=== PATIENT | female | born 1965 | race Caucasian/White ===

== ENCOUNTER 2020-12-30 17:43 | Observation (INO) ==
[2020-12-30] MEDS ORDERED: ONDANSETRON HCL/PF 2 MG/ML VIAL IV ONE (18:11)
[2020-12-30] MEDS ORDERED: PANTOPRAZOLE SODIUM 40 MG/100 ML PIGGYBACK IV ONE (18:16)
[2020-12-30] MEDS ORDERED: MORPHINE SULFATE 2 MG/ML DISP.SYRIN IV ONE (18:19)
[2020-12-30] MEDS ORDERED: LORazepam 2 MG/ML DISP.SYRIN IV ONE (18:20)
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
[2020-12-30 18:51] LABS: Hematocrit 44.8 % (37.0-47.0); Hemoglobin 14.7 gm/dL (12.5-16.0); Mean Cell Volume 92.2 fl (78-100); Mean Corpuscular Hemoglobin 30.2 pg (27-31); Mean Corpuscular Hgb Conc 32.8 g/dl (32-36); Mean Platelet Volume 10.3 fl (8-12.5); Neutrophil # 5.5 K/mm3 (1.3-6.0); Neutrophil % 52.7 % (42-75.0); Platelet Count 490 K/mm3 (150-450); Red Blood Count 4.86 M/mm3 (4.2-5.4); Red Cell Distribution Width 11.9 % (11.5-14.0); White Blood Count 10.5 K/mm3 (4.0-10.5)
[2020-12-30 19:04] LABS: Urine Bilirubin Negative (NEGATIVE); Urine Blood Negative /ul (NEGATIVE); Urine Ketone Negative (NEGATIVE); Urine Nitrite Negative (NEGATIVE); Urine Protein Negative (NEGATIVE); Urine Specific Gravity >=1.030 SP.GR. (1.005-1.010); Urine Urobilinogen Normal (NORMAL)
[2020-12-30] MEDS ORDERED: MAG HYDROX/ALUMINUM HYD/SIMETH 30 ML UDC PO ONE (19:07)
[2020-12-30] MEDS ORDERED: LIDOCAINE HCL 15 ML UDC MM ONE (19:07)
[2020-12-30] MEDS ORDERED: SUCRALFATE 1 G/10 ML UDC PO ONE (19:07)
[2020-12-30 19:11] LABS: ALT 20 U/L (19-67); AST 14 U/L (0-48); Albumin * 3.9 gm/dl (3.4-5.0); Alkaline Phosphatase * 139 U/L (50-170); Amylase * 19 U/L (25-115); Anion Gap 14.1 mmol/L (6.8-13.8); BUN/Creatinine Ratio 15.5 (9.0-21.6); Bilirubin, Total 0.3 mg/dL (0.0-1.1); Blood Urea Nitrogen 11 mg/dL (3-23); Ca. Corrected For Albumin 8.9 mg/dL (8.4-10.2); Calcium * 9.1 mg/dL (7.9-10.9); Carbon Dioxide 24.3 mmol/L (24-32.6); Chloride 104 mmol/L (97-106); Glucose * 47 mg/dL (70-110); Lipase 29 U/L (73-393); Potassium 3.4 mmol/L (3.4-4.6); Sodium 139 mmol/L (132-142); TSH * Less than 0.007 uIU/mL (0.358-3.74); Total Protein 7.5 gm/dL (6.2-8.2)
[2020-12-30 19:15] LABS: Urine Appearance Clear (CLEAR); Urine Color Yellow
[2020-12-30 19:16] LABS: Urine Bacteria 2+; Urine RBC None Seen /hpf (0-5); Urine WBC TRACE /hpf (0-5)
[2020-12-30] MEDS ORDERED: DEXTROSE 50%-WATER 50 ML SYRG IV PRN (21:34)
[2020-12-30] MEDS: ONDANSETRON HCL/PF 2 MG/ML VIAL IV PRN (22:57)
[2020-12-31] MEDS: ONDANSETRON HCL/PF 2 MG/ML VIAL IV PRN (06:38)
[2020-12-31] MEDS ORDERED: ALPRAZolam 0.5 MG TABLET PO PRN (07:52)
--- NOTE | 2020-12-31 07:54 | HP ---
Chief Complaint - Chief Complaint Date of Service: 12/31/20 Time of Service: 07:54 Chief Complaint: abdominal pain History of Present Illness: 55-year-old female who came in via private vehicle to the ER due to persistent abdominal pain, nausea vomiting, diarrhea. Her abdominal pain has been a chronic issue for the last couple years but the nausea vomiting got worse this week. She was worked up in the ER which showed her to have a normal white count without shift, her CHEM panel was unremarkable, her amylase and lipase were negative, her TSH was low at less than 0.007 which need to be addressed, urine was negative for infection, and she was Covid negative. Her abdominal x-ray showed no acute process. Patient states that she has been having issues with nausea vomiting for the last week after she eats. She also has diarrhea not l kobi after she eats. This is not really new to her though just appears that gotten worse. Her lab looks good she does not appear to be dehydrated. The only real abnormality on her lab work was her blood sugar was 47 and she had taken both her long-acting insulin as well as her Ozempic. ER provider was concerned with her bottoming out throughout the night and asked if she could be observed which I thought was appropriate. Her vital signs been stable otherwise and she was feeling better prior to admission per the ER doc. When seen this morning she had no concerns and was asking to be discharged home. She would like some nausea medicine to be sent to her pharmacy if possible but otherwise she feels better. Medical History (Last Reviewed 12/30/20 @ 21:48 by Andria Rick RN) Internal derangement of right knee (Resolved) s/p post medial meniscus root repair Sprain of lateral collateral ligament of right knee (Acute) DKA (diabetic ketoacidoses) (Acute) Viral gastroenteritis (Acute) Back pain (Chronic) Hypothyroidism (Chronic) Sepsis (Acute) Allergic rhinitis (Chronic) Elevated lipase (Acute) Abdominal pain (Acute) Leukocytosis (Acute) Discharge planning issues (Acute) Hypokalemia due to loss of potassium (Acute) Hypoglycemia (Acute) Allergic rhinitis (Chronic) Generalized anxiety disorder (Chronic) Onset Date: ~09/25/13 secondary to worrying about DM Depression (Chronic) Onset Date: ~09/25/13 Diabetes mellitus (Chronic) Onset Date: ~08/2013 Excessive menstruation (Chronic) Herpetic gingivostomatitis (Chronic) Onset Date: ~01/07/12 Hypothyroid (Chronic) Onset Date: ~10/26/13 Degenerative joint disease of knee (Chronic) left Chronic leg pain (Chronic) Onset Date: ~12/11/13 Medial meniscus tear (Chronic) Onset Date: ~01/16/17 12/03/2019 medial meniscus root repair Menometrorrhagia (Chronic) Onset Date: ~11/23/15 Midline low back pain without sciatica (Chronic) Onset Date: ~12/18/15 Obesity, unspecified (Chronic) Onset Date: ~01/01/16 Primary localized osteoarthritis of left knee (Chronic) Onset Date: ~02/13/17 Plantar fasciitis (Chronic) Onset Date: ~09/04/12 Type 2 diabetes mellitus with hyperglycemia (Chronic) Onset Date: ~01/12/16 Vulvitis (Chronic) Onset Date: ~11/23/15 Sinusitis (Acute) Insomnia (Acute) Stomach ulcer (Acute) Bunion of great toe of right foot Knee pain, right (Inactive) Surgical History: Surgical History (Last Reviewed 12/30/20 @ 21:48 by Andria Rick RN) H/O adenoidectomy (Resolved) Onset Date: ~1971 H/O arthroscopy (Resolved) Onset Date: 01/03/17 Eliana- w/pmm, chondroplasty of patella, femoral trochlea and medial femoral condyle. H/O esophagogastroduodenoscopy (Resolved) Onset Date: 11/17/18 Sean-08/08/15-clotest negative. chemical gastritis. 11/17/18-clotest negative, benign reactive gastropathy/chemical gastritis. Ulcerative duodenitis w/severe reflux changes. History of laparoscopic cholecystectomy (Resolved) Onset Date: 08/08/15 Sean History of partial hysterectomy (Resolved) Onset Date: 03/08/16 still has ovaries History of tonsillectomy (Resolved) Onset Date: ~1971 Hx of total knee arthroplasty (Resolved) Onset Date: 02/14/18 left partial H/O tubal ligation (Resolved) Onset Date: ~1996 History of bunionectomy of right great toe 08/12/20 S/P right knee arthroscopy Onset Date: 12/03/19 Right knee arthroscopy with medial meniscal root repair, chondroplasty of medial femoral condyle and trochlear groove-Dr. Monroy History of colonoscopy Onset Date: 11/17/18 11/17/18 Bagan-normal. Recheck 10 yrs. Family History: Family History (Last Reviewed 12/30/20 @ 21:49 by Andria Rick RN) Aunt Breast cancer Brother Diabetes Daughter Hypothyroidism Father prostate issues Mother Diabetes Celiac disease Social History: (Last Updated 12/30/20 @ 21:50 by Andria Rick RN) Social History: halfway: No Marital status: lives independently: No lives independently comment: spouse and granddaughter household members: spouse number of children: 2 current occupational status: unemployed Service: No Tobacco: Smoking Status: Never smoker second hand exposure: No Alcohol: alcohol intake: current alcohol intake frequency: holiday/special occasion Substance Use: substance use type: does not use Dietary Habits: caffeine: Yes Type: carbonated beverages Exercise: frequency: does not exercise Personal Safety: victim of physical abuse: No victim of emotional abuse: No Review Of Systems (GEN) - Review of Systems Generalized/Overall Review: Absent: Weakness, Chills, Fever EENTM: Present: No Symptoms Reported Respiratory: Present: No Symptoms Reported Cardiac: Present: No Symptoms Reported Abdominal: Present: Nausea, Vomiting, Diarrhea. Absent: Bright blood from rectum Genitourinary: Present: No Symptoms Reported Musculoskeletal: Present: No Symptoms Reported Neurological: Present: No Symptoms Reported Skin: Present: No Symptoms Reported Endocrine: Present: No Symptoms Reported Immunizations: IMMUNIZATION HX Immunizations Up to Date Yes History of Influenza Vaccine Yes Hx Pneumococcal Vaccination No Allergies/Adverse Reactions: Allergies Allergy/AdvReac Type Severity Reaction Status Date / Time oxycodone HCl [From Percocet] Allergy Mild ITCHING Verified 12/30/20 17:54 HEAD TO TOE duloxetine AdvReac Nausea Verified 12/30/20 17:54 seasonal allergies Allergy hay fever Uncoded 12/30/20 17:54 Home Medications: HOME MEDICATIONS Multivitamins [Multivitamin Laurent] 1 cap PO DAILY 12/24/16 [Last Taken Unknown] lancets 28 gauge See Dose Instructions .ROUTE .MEDSUPPLY #25 ea 05/16/18 [Last Taken Unknown] blood-glucose meter See Dose Instructions .ROUTE .MEDSUPPLY #1 ea 11/19/18 [Last Taken Unknown] lancets See Rx Instructions .ROUTE .MEDSUPPLY #100 ea 09/01/19 [Last Taken Unknown] levothyroxine 88 mcg tablet 88 mcg PO DAILY #30 tab 09/13/19 [Last Taken Unknown] blood sugar diagnostic See Rx Instructions .ROUTE .COMPLEX #100 strip 09/22/19 [Last Taken Unknown] levothyroxine 200 mcg tablet 200 mcg PO DAILY #30 tab 05/02/20 [Last Taken Unknown] alprazolam 0.5 mg tablet 0.5 mg PO TID PRN #75 tab 08/31/20 [Last Taken Unknown] insulin degludec 100 unit/mL (3 mL) subcutaneous pen 35 unit SUBCUT DAILY #15 ml 12/07/20 [Last Taken Unknown] semaglutide 1 mg SUBCUT QWEEK 0 Days ml 12/07/20 [Last Taken Unknown] metformin 1,000 mg tablet 1,000 mg PO BID #60 tab 12/22/20 [Last Taken Unknown] metoclopramide HCl 5 mg tablet 5 mg PO ACHS #120 tab 12/22/20 [Last Taken Unknown] omeprazole 40 mg capsule,delayed release 40 mg PO DAILY #30 cap 12/22/20 [Last Taken Unknown] Sertraline HCl [Zoloft] 100 mg PO HS 12/30/20 [Last Taken Unknown] Exam - Exam Vital Signs: Vital Signs - Last Taken Temp 36.8 C 12/31/20 06:08 Pulse 82 12/31/20 06:08 Resp 16 12/31/20 06:08 BP 135/62 12/31/20 06:08 Pulse Ox 98 12/31/20 06:08 Constitutional: Present: Alert, Oriented x3 ENT Exam: Present: hearing grossly normal Eye Exam: bilateral eye: normal inspection, EOMI Respiratory: Present: lungs clear, normal breath sounds Cardiovascular/Chest: Present: regular rate, rhythm, no murmur Abdomen: Present: soft, no rebound tenderness, tender - Diffuse. Absent: guarding, rigidity Extremity: Present: non-tender, normal inspection Skin Exam: Present: normal color, warm/dry Neurologic: Present: no motor/sensory deficits, normal mood/affect Appearance: Present: appropriate appearance, appropriate insight Eye contact: Present: cooperative, good eye contact, normal speech Thoughts: Present: normal thought pattern, normal mood /affect Diagnostic Studies: Abnormal Lab Results 12/30/20 12/30/20 12/30/20 Range/Units 18:22 18:41 18:41 Plt Count 490 H (150-450) K/mm3 Lymphocytes # 3.86 H (1.5-3.5) k/mm3 Anion Gap 14.1 H (6.8-13.8) mmol/L Random Glucose 47 L (70-110) mg/dL Amylase 19 L (25-115) U/L Lipase 29 L (73-393) U/L TSH Less than 0.007 L (0.358-3.74) uIU/mL Free T4 (0.76-1.46) ng/dL Urine WBC Trace H (0-5) /hpf Ur Epithelial Cells 5-10 H (0-5) /hpf Urine Bacteria 2+ H (NONE) 12/30/20 Range/Units 18:41 Plt Count (150-450) K/mm3 Lymphocytes # (1.5-3.5) k/mm3 Anion Gap (6.8-13.8) mmol/L Random Glucose (70-110) mg/dL Amylase (25-115) U/L Lipase (73-393) U/L TSH (0.358-3.74) uIU/mL Free T4 1.50 H (0.76-1.46) ng/dL Urine WBC (0-5) /hpf Ur Epithelial Cells (0-5) /hpf Urine Bacteria (NONE) Microbiology 12/30/20 18:22 Urine Culture - Preliminary Urine,Clean Catch No Growth Laboratory Results WBC 10.5 K/mm3 (4.0-10.5) 12/30/20 18:41 RBC 4.86 M/mm3 (4.2-5.4) 12/30/20 18:41 Hgb 14.7 gm/dL (12.5-16.0) 12/30/20 18:41 Hct 44.8 % (37.0-47.0) 12/30/20 18:41 MCV 92.2 fl (78-100) 12/30/20 18:41 MCH 30.2 pg (27-31) 12/30/20 18:41 MCHC 32.8 g/dl (32-36) 12/30/20 18:41 RDW 11.9 % (11.5-14.0) 12/30/20 18:41 Plt Count 490 K/mm3 (150-450) H 12/30/20 18:41 MPV 10.3 fl (8-12.5) 12/30/20 18:41 Immature Gran % (Auto) 0.20 % (0.001-0.429) 12/30/20 18:41 Immature Gran # (Auto) 0.02 K/mm3 (0.000-0.0310) 12/30/20 18:41 Neutrophils % 52.7 % (42-75.0) 12/30/20 18:41 Lymphocytes % 36.9 % (20-51) 12/30/20 18:41 Monocytes % 8.3 % (0.0-9) 12/30/20 18:41 Eosinophils % 1.6 % (0.0-3.0) 12/30/20 18:41 Basophils % 0.3 % (0.0-1.0) 12/30/20 18:41 Nucleated RBC % 0.0 k/mm3 (0-1) 12/30/20 18:41 Neutrophils # 5.5 K/mm3 (1.3-6.0) 12/30/20 18:41 Lymphocytes # 3.86 k/mm3 (1.5-3.5) H 12/30/20 18:41 Monocytes # 0.9 k/mm3 (0.0-1.0) 12/30/20 18:41 Eosinophils # 0.2 k/mm3 (0.0-0.7) 12/30/20 18:41 Absolute Basophils 0.0 k/mm3 (0.0-0.1) 12/30/20 18:41 Sodium 139 mmol/L (132-142) 12/30/20 18:41 Plasma Sodium 138 mmol/L (130-142) 12/30/20 18:41 Potassium 3.4 mmol/L (3.4-4.6) 12/30/20 18:41 Chloride 104 mmol/L (97-106) 12/30/20 18:41 Carbon Dioxide 24.3 mmol/L (24-32.6) 12/30/20 18:41 Anion Gap 14.1 mmol/L (6.8-13.8) H 12/30/20 18:41 BUN 11 mg/dL (3-23) 12/30/20 18:41 Creatinine 0.71 mg/dL (0.4-1.4) 12/30/20 18:41 Est GFR (Non-Af Amer) 91 mL/min (60-130) 12/30/20 18:41 BUN/Creatinine Ratio 15.5 (9.0-21.6) 12/30/20 18:41 Random Glucose 47 mg/dL (70-110) L 12/30/20 18:41 Calcium 9.1 mg/dL (7.9-10.9) 12/30/20 18:41 Calcium Adj for Albumin 8.9 mg/dL (8.4-10.2) 12/30/20 18:41 Total Bilirubin 0.3 mg/dL (0.0-1.1) 12/30/20 18:41 AST 14 U/L (0-48) 12/30/20 18:41 ALT 20 U/L (19-67) 12/30/20 18:41 Alkaline Phosphatase 139 U/L (50-170) 12/30/20 18:41 Total Protein 7.5 gm/dL (6.2-8.2) 12/30/20 18:41 Albumin 3.9 gm/dl (3.4-5.0) 12/30/20 18:41 Amylase 19 U/L (25-115) L 12/30/20 18:41 Lipase 29 U/L (73-393) L 12/30/20 18:41 TSH Less than 0.007 uIU/mL (0.358-3.74) L 12/30/20 18:41 Free T4 1.50 ng/dL (0.76-1.46) H 12/30/20 18:41 Urine Color Yellow 12/30/20 18: Urine Appearance Clear (CLEAR) 12/30/20 18: Urine pH 5.0 pH (5.0-7.0) 12/30/20 18: Ur Specific [place] >=1.030 SP.GR. (1.005-1.010) 12/30/20 18: Urine Protein Negative mg/dL (NEGATIVE) 12/30/20 18: Urine Glucose (UA) Negative mg/dL (NEGATIVE) 12/30/20 18: Urine Ketones Negative mg/dL (NEGATIVE) 12/30/20 18: Urine Blood Negative /ul (NEGATIVE) 12/30/20 18:22 Urine Nitrate Negative (NEGATIVE) 12/30/20 18:22 Urine Bilirubin Negative mg/dl (NEGATIVE) 12/30/20 18:22 Urine Urobilinogen Normal EU/dl (NORMAL) 12/30/20 18:22 Ur Leukocyte Esterase Negative /ul (NEGATIVE) 12/30/20 18:22 Urine RBC None seen /hpf (0-5) 12/30/20 18:22 Urine WBC Trace /hpf (0-5) H 12/30/20 18:22 Ur Epithelial Cells 5-10 /hpf (0-5) H 12/30/20 18:22 Urine Bacteria 2+ (NONE) H 12/30/20 18:22 Urine Culture Comments No culture indicated 12/30/20 18: SARS-CoV-2 (PCR) Not detected (NotDetected) 12/30/20 20:10 Assessment/Plan - Narrative Narrative: Patient placed under observation due to hypoglycemia. Patient is on Ozempic and degludec and is unable to keep things down due to the nausea vomiting. ER provider was concerned that her sugars are dropping throughout the night and that she would not do well with this. I okayed bringing her in for observation to monitor her blood sugars. She did get some soda in the ER and was felt much better after this. Today when seen, patient looked much better and was feeling much better than she had in a few days. She still has some nausea which is chronic for her but not as bad as it was. She states that she is unsure if she has diarrhea usually happens after she eats but otherwise her stomach is felt much better than it has recently. Her vital signs been stable and her lab work was unremarkable aside from the blood sugar of 47. Repeat today was 212. Discussed her hypothyroidism and will address this in the clinic when she sees me next week as she will need to have her levothyroxine dose adjusted. We will likely stop her Reglan as she was recently started on this at her last appointment and does not feel like it is helped abdominal pain. Patient needs to follow-up with her GI specialist which we will set up outpatient [facility]. She will be discharged later today, will send into Phenergan which works well for her. No other changes made to her medication. - Assessment/Plan (1) Abdominal pain Problem: Acute (2) Gastroparesis Problem: Acute (3) Nausea & vomiting Problem: Acute (4) Diarrhea Problem: Acute (5) Hypoglycemia Problem: Acute
[2020-12-31] MEDS ORDERED: LEVOTHYROXINE SODIUM 100 MCG TABLET PO SCH (09:00)
[2020-12-31] MEDS ORDERED: PANTOPRAZOLE SODIUM 40 MG TABLET.EC PO SCH (09:00)
[2020-12-31] MEDS ORDERED: INSULIN GLARGINE,HUM.REC.ANLOG 100 UNITS/ML VIAL SC SCH (09:00)
--- NOTE | 2020-12-31 09:29 | DS ---
(1) Abdominal pain Problem: Acute (2) Gastroparesis Problem: Acute (3) Nausea & vomiting Problem: Acute (4) Diarrhea Problem: Acute (5) Hypoglycemia Problem: Acute Date of Discharge:: 12/31/20 Hospital Course: Patient placed under observation due to hypoglycemia. Patient is on Ozempic and degludec and is unable to keep things down due to the nausea vomiting. ER provider was concerned that her sugars are dropping throughout the night and that she would not do well with this. I okayed bringing her in for observation to monitor her blood sugars. She did get some soda in the ER and was felt much better after this. Today when seen, patient looked much better and was feeling much better than she had in a few days. She still has some nausea which is chronic for her but not as bad as it was. She states that she is unsure if she has diarrhea usually happens after she eats but otherwise her stomach is felt much better than it has recently. Her vital signs been stable and her lab work was unremarkable aside from the blood sugar of 47. Repeat today was 212. Discussed her hypothyroidism and will address this in the clinic when she sees me next week as she will need to have her levothyroxine dose adjusted. We will likely stop her Reglan as she was recently started on this at her last appointment and does not feel like it is helped abdominal pain. Patient needs to follow-up with her GI specialist which we will set up outpatient [facility]. She will be discharged now, will send in Phenergan which works well for her. No other changes made to her medication beside what is stated above. Advised her to continue with her diabetic medication as she has been a poorly controlled diabetic but she needs to monitor her sugars and make sure she is eating. She knows how to do this. Procedures Performed: none Results and Findings: Pending Mircobiology Results 12/30/20 18:22 Urine,Clean Catch Urine Culture - Preliminary No Growth Lab Pending Results 12/30/20 18:22: Urine Color Yellow, Urine Appearance Clear, Urine pH 5.0, Ur Specific [place] >=1.030, Urine Protein Negative, Urine Glucose (UA) Negative, Urine Ketones Negative, Urine Blood Negative, Urine Nitrate Negative, Urine Bilirubin Negative, Urine Urobilinogen Normal, Ur Leukocyte Esterase Negative, Urine RBC None seen, Urine WBC Trace H, Ur Epithelial Cells 5-10 H, Urine Bacteria 2+ H, Urine Culture Comments No culture indicated 12/30/20 18:41: WBC 10.5, RBC 4.86, Hgb 14.7, Hct 44.8, MCV 92.2, MCH 30.2, MCHC 32.8, RDW 11.9, Plt Count 490 H, MPV 10.3, Immature Gran % (Auto) 0.20, Immature Gran # (Auto) 0.02, Neutrophils % 52.7, Lymphocytes % 36.9, Monocytes % 8.3, Eosinophils % 1.6, Basophils % 0.3, Nucleated RBC % 0.0, Neutrophils # 5.5, Lymphocytes # 3.86 H, Monocytes # 0.9, Eosinophils # 0.2, Absolute Basophils 0.0 12/30/20 18:41: Sodium 139, Plasma Sodium 138, Potassium 3.4, Chloride 104, Carbon Dioxide 24.3, Anion Gap 14.1 H, BUN 11, Creatinine 0.71, Est GFR (Non-Af Amer) 91, BUN/Creatinine Ratio 15.5, Random Glucose 47 L, Calcium 9.1, Calcium Adj for Albumin 8.9, Total Bilirubin 0.3, AST 14, ALT 20, Alkaline Phosphatase 139, Total Protein 7.5, Albumin 3.9, Amylase 19 L, Lipase 29 L, TSH Less than 0.007 L 12/30/20 18:41: Free T4 1.50 H 12/30/20 20:10: SARS-CoV-2 (PCR) Not detected Discharge Location: Home Disposition: Home self-care Condition: Fair Discharge Activity: Activity as tolerated Discharge Diet: Consistent carbs Referrals: Davie Nguyen DO [Primary Care Provider] - (She has an appointment scheduled with me already in 9 days) Prescriptions (Any new or edited meds): Promethazine HCl [Phenergan (Promethazine)] 25 mg PO Q6H PRN #30 tab PRN Reason: nausea/vomiting Transmission Status: Pending to [facility] Complete Home Medications List: Complete Home Medication List: Multivitamins [Multivitamin Laurent] 1 cap PO DAILY 12/24/16 lancets 28 gauge See Dose Instructions .ROUTE .MEDSUPPLY #25 ea 05/16/18 blood-glucose meter See Dose Instructions .ROUTE .MEDSUPPLY #1 ea 11/19/18 lancets See Rx Instructions .ROUTE .MEDSUPPLY #100 ea 09/01/19 levothyroxine 88 mcg tablet 88 mcg PO DAILY #30 tab 09/13/19 blood sugar diagnostic See Rx Instructions .ROUTE .COMPLEX #100 strip 09/22/19 levothyroxine 200 mcg tablet 200 mcg PO DAILY #30 tab 05/02/20 alprazolam 0.5 mg tablet 0.5 mg PO TID PRN #75 tab 08/31/20 insulin degludec 100 unit/mL (3 mL) subcutaneous pen 35 unit SUBCUT DAILY #15 ml 12/07/20 semaglutide 1 mg SUBCUT QWEEK 0 Days ml 12/07/20 metformin 1,000 mg tablet 1,000 mg PO BID #60 tab 12/22/20 omeprazole 40 mg capsule,delayed release 40 mg PO DAILY #30 cap 12/22/20 Sertraline HCl [Zoloft] 100 mg PO HS 12/30/20 Promethazine HCl [Phenergan (Promethazine)] 25 mg PO Q6H PRN #30 tab 12/31/20 Forms: Patient Portal Registration
[2020-12-31 10:51] VITALS: BP 146/79
[2020-12-31] MEDS ORDERED: METOCLOPRAMIDE HCL 5 MG TABLET PO SCH (11:00)
[2020-12-31] MEDS ORDERED: SERTRALINE HCL 100 MG TABLET PO SCH (21:00)
== END 2020-12-31 10:40 | disposition home or self-care (01) ==
LOC: MS 17:43 → ER 17:43 → MS 21:40
PROVIDERS: ADMIT Family Medicine; ATTEND Family Medicine